=== PATIENT | male | born 1980 | race African-American/Black ===

== ENCOUNTER 2021-03-05 08:17 | Emergency (ER) | payer MEDICARE ==
[~2021-03-05] VITALS: Ht 177.8 cm; Wt 93.7 kg
[2021-03-05 08:18] VITALS: BP 134/87
[2021-03-05] MEDS ORDERED: DOXY-350 PO (09:35)
== END 2021-03-05 09:46 | disposition home or self-care (01) ==
LOC: M ED 08:17
DX: Z11.3 Encounter for screening for infections with a predominantly sexual mode of transmission (principal)